=== PATIENT | male | born 1975 | race Caucasian/White ===

== ENCOUNTER → 2020-08-04 | Outpatient (REF) | payer SELFPAY | LOC: EDSTATUS 13:30 → M LABSMTC 14:05 | PROVIDERS: ATTEND Pediatrics | DX: Z20.828 Contact with and (suspected) exposure to other viral communicable diseases (principal) ==

== ENCOUNTER → 2025-04-17 | Outpatient (RCR) | LOC: M EMPSSV 04-06 08:00 → EDUNIT# 04-06 08:00 | PROVIDERS: ATTEND Family Medicine | DX: Z20.828 Contact with and (suspected) exposure to other viral communicable diseases (principal) ==